=== PATIENT | female | born 1950 | race Caucasian/White ===

== ENCOUNTER 2019-04-09 23:41 | Inpatient (IN) | payer OTHER, MEDICAID ==
[~2019-04-09] VITALS: Ht 152.4 cm; Wt 63.5 kg
[2019-04-09 23:54] VITALS: Ht 152.4 cm; Wt 63.5 kg
[2019-04-10 00:24] LABS: BASOPHIL % 0.3 % (0-2); PLATELET COUNT 141 x10^3mcL (130-400)
--- NOTE | 2019-04-10 00:24 | NUR ---
PT BIB [facility] FROM [facility], WITH REPORTS OF TACHYCARDIA AND THE FACILITY REPORTED THAT "THEY WERE UNABLE TO GIVE PT HER IV MEDS IT IS OUT OF THIER SCOPE OF PRACTICE." PER MEDIC PT WAS TRANSFERRED FROM [place] TO [facility] AND WAS ONLY AT [facility] FOR 30 MINUTES BEFORE THE FACILITY CALLED 911. PER MEDIC PT C/O "HEARTBURN LIKE ACID REFLUX TO THROAT." PT DENIES ANY PAIN. PT C/O OF NAUSEA AT THIS TIME. PT UNABLE TO URINATE DUE TO GENERALIZED WEAKNESS AT THIS TIME. PER DAUGHTER AT THE BEDSIDE PT HAD "STOMACH CANCER" IN 2013 AND RECEIVES TPN. PT HAS URINARY MCCORD TO GRAVITY WITH STRAW CLOUDY COLORED URINE NOTED AT THIS TIME. PT IS AAOX4, NO DISTRESS NOTED, RESP E/U, JAUNDICE NOTED TO SKIN, AREAS OF PURLE YELLOWISH SKIN NOTED TO BILATERAL UPPER EXTREMITIES, PT HAS PICC, 2 VALVE, TO LUE, VERTICAL SCAR NOTED TO LOEFT LATERAL ABDOMEN, ABDOOMEN IS DISTENDED AND SOFT. PT HAS HISTORY OF LIVER CIRRHOSIS FROM PAST ALCOHOLISM. PT PLACED NO FULL CM, NSR, VSS, BED IN LOWEST POSITION, SIDE RAIL X2 UP FOR SAFETY, DAUGHTER AT THE BEDSIDE. MSE COMPLETED BY DR ALMEIDA. WILL CONT TO MONITOR. PT IS [place] SPEAKING ONLY.
[2019-04-10 00:29] LABS: RED CELL DISTRIBUTION WIDTH 19.5 % (11.5-14.5)
[2019-04-10 00:37] LABS: CALCIUM 8.5 mg/dL (8.5-10.1); CARBON DIOXIDE 28.8 mmol/L (21-32); CHLORIDE SERUM 106 mmol/L (98-107); CREATININE SERUM 0.9 mg/dL (0.6-1.0); GFR1 > 60 mL/min; GLUCOSE SERUM 70 mg/dL (74-106); POTASSIUM SERUM 4.4 mmol/L (3.5-5.1); SODIUM SERUM 139 mmol/L (136-145)
[2019-04-10 00:41] LABS: ALKALINE PHOSPHATASE 497 U/L (46-116); ALT/SGPT 19 U/L (14-59); AMYLASE 33 U/L (25-115); AST/SGOT 79 U/L (15-37); BILIRUBIN TOTAL 0.9 mg/dL (0.20-1.00); LIPASE 105 IU/L (73-393); MAGNESIUM 2.1 mg/dL (1.8-2.4)
[2019-04-10 00:45] LABS: ALBUMIN 1.8 g/dL (3.4-5.0)
--- NOTE | 2019-04-10 01:20 | NUR ---
PT MEDICATED PER ORDER. PT VERBALIZED UNDERSTANDING OF MEDICATION TEACHING. SEE EMAR FOR DETAILS.
--- NOTE | 2019-04-10 01:45 | NUR ---
FAMILY AT BEDSIDE STATES "IM HER PRIMARY CAREGIVER IF ANYTHING CHANGES CAN I GIVE YOU MY NUMBER". PT FAMILY MEMBER NAME ARLEN CHANG AND NUMBER [phone]. PRIMARY RN MADE AWARE.
--- NOTE | 2019-04-10 02:45 | NUR ---
MEDICATED PT WITH D5 IN NS PER MD ORDERS, INFUSING NO PROB, NO INFILTRATION OR PAIN NOTED TO THE DENIZ SITE. PT IS RESTING WITH EYES CLOSED, AROUSABLE TO VOICE. PT DENIES ANY PAIN AT THIS TIME. PT IS AAOX4, NO DISTRESS NOTED, RESP E/U. [PT ON FULL CM, SINUS TACH, MD AWARE. BED IN LOWEST POSITION, SIDERAIL X2 UP FOR SAFETY, CALL ALLISON WITHIN REACH. WILL CONT TO MONITOR.
--- NOTE | 2019-04-10 03:30 | NUR ---
PRESSURE ULCER NOTED TO SACRUM, PICTURES TAKEN OF WOUND, EMPTIED 400ML OF STRAW COLORED CLOUDY URINE FROM MCCORD, PT IS AAOX4, NO DISTRESS NOTED, RESP E/U, PT ON FULL CM, SINUS TACH, AWARE. PT DENIES ANY PAIN AT THIS TIME. D5 WITH NS INFUSING, NO INFILTRATION NOTED TO IV PICC LINE OR PAIN REPORTED. WILL CONT TO MONITOR.
[2019-04-10 03:31] LABS: T3 TOTAL 0.58 ng/mL
[2019-04-10 03:32] LABS: FREE T4 1.35 ng/dL (0.76-1.46); FREE THYROXINE INDEX 2.4 ug/dL (1.4-4.5); T4(THYROXINE) 6.1 ug/dL (4.7-13.3)
--- NOTE | 2019-04-10 03:54 | NUR ---
GAVE REPORT JENNIFER TONG, WHO WILL RESUME FURTHER CARE OF THIS PATIENT.
[2019-04-10] MEDS ORDERED: LANTUS SOLOS100 U/M1 SQ (03:59)
[2019-04-10] MEDS ORDERED: LORAZEPAM1 MG PO (03:59)
[2019-04-10] MEDS ORDERED: MIRTAZAPINE30 M2 PO (03:59)
[2019-04-10] MEDS ORDERED: PEPCID20 MG PO (03:59)
[2019-04-10] MEDS ORDERED: ZOFRAN ODT4 MG SL (04:00)
[2019-04-10] MEDS ORDERED: TOPROL XL25 MG PO (04:00)
--- NOTE | 2019-04-10 04:00 | NUR ---
PT RECEIVED FROM THE ED VIA JANENE, ACCOMPANIED BY RN AND TRANSPORTER. PT IS ALERT AND ORIENTED X4, BULGARIAN SPEAKING ONLY. CALM AND COOPERATIVE WITH CARE. PT HAS A LUE PICC LINE IN PLACE AND IS INFUSING D5 NS AT 150ML/HR AT THIS TIME. PT HAS GENERALIZED WEAKNESS BUT IS ABLE TO AMBULATE WITH ASSISTANCE,. PT DENIES FALLS IN THE PAST THREE MONTHS. PT IS ON TELE #24 AND IS NSR AND DENIES CHEST PAIN OR DISCOMFORT AT THIS TIME. BILATERAL RADIAL PULSES ARE PRESENT AND MODERATE, LIAT PEDAL PULSES ARE WEAK, NO EDEMA NOTED, SKIN ASSESSMENT IS ULCER NOTED ON THE SACRAL/BUTTOCK, OPTIFOAM IN PLACE. (SEE SKIN ASSESSMENT) LUNG SOUNDS ARE CTAB, BREATHING IS EQUAL AND UNLABORED AT THIS TIME. PT IS ON 2L OF O2 VIA NC, BOWEL SOUNDS PRESENT AND ACTIVE IN ALL 4 QUADRANTS, LAST BM PER PT REPORT IS 04/10/19. ORIENTED PT TO ROOM, BED CONTROLS, CALL LIGHT SYSTEM, SIDE RAILS UP X2, BED IN LOWEST POSITION.
[2019-04-10 04:51] VITALS: BP 123/67
--- NOTE | 2019-04-10 05:15 | NUR ---
PT HAS BEEN ALERT AND ORIENTED X4, CALM AND COOPERATIVE WITH CARE. PT DENIES PAIN AT THIS TIME. IV INFUSING AND INTACT AT THIS TIME. PT HAS LUE PICC LINE IN PLACE. MCCORD CATHETER IS IN PLACE AND DRAINING FREELY AT THIS TIME. SAFETY AND COMFORT MEASURES MAINTAINED, BED IN LOWEST POSITION, CALL LIGHT WITHIN REACH. WILL ENDORSE CONTINUITY OF CARE TO THE ONCOMING RN.
--- NOTE | 2019-04-10 07:00 | NUR ---
RECEIVED BEDSIDE REPORT FROM MOLD INJECTOR NURSE AT THIS TIME. PATIENT RESTING COMFORTABLY IN BED. NO APPARENT DISTRESS OR DISCOMFORT NOTED. 2L NC IN PLACE AND TOLERATING WELL. BREATHING EVEN AND UNLABORED. NO RESPIRATORY DISTRESS NOTED. NO INDICATION OF CHEST PAIN/PRESSURE AT THIS TIME. PATIENT HAS DOUBLE LUMEN PICC LINE TO LUE DRESSING INTACT. MCCROD CATHETER IN PLACE DRAINING TO GRAVITY YELLOW URINE. ALL QUESTIONS AND CONCERNS ADDRESSED. ALL NEEDS ATTENDED TO. WILL CONTINUE TO MONITOR
[2019-04-10 08:52] LABS: microscopic required? YES; urine erythrocyte TRACE (NEGATIVE)
[2019-04-10 08:59] VITALS: BP 123/67
[2019-04-10 09:12] VITALS: BP 109/60
--- NOTE | 2019-04-10 12:00 | NUR ---
PATIENT BLOOD SUGAR 66 AT THIS TIME. NO INSULIN COVERAGE REQUIRED. WAITING FOR TPN TO BE VERIFIED AT THIS TIME. ALL NEEDS ATTENDED TO. WILL CONTINUE TO MONITOR
[2019-04-10 12:19] LABS: CALCIUM 7.6 mg/dL (8.5-10.1); CARBON DIOXIDE 24.2 mmol/L (21-32); CHLORIDE SERUM 111 mmol/L (98-107); CREATININE SERUM 0.8 mg/dL (0.6-1.0); GFR1 > 60 mL/min; GLUCOSE SERUM 109 mg/dL (74-106); POTASSIUM SERUM 4.2 mmol/L (3.5-5.1); SODIUM SERUM 141 mmol/L (136-145)
--- NOTE | 2019-04-10 12:22 | NUR ---
MORNING MEDICATIONS ADMINISTERED AT THIS TIME. PATIENT TOLERATED WELL. NO ADVERSE EFFECTS NOTED. ALL NEEDS ATTENDED TO. WILL CONTINUE TO MONITOR.
--- NOTE | 2019-04-10 12:40 | NUR ---
Initial Nutrition Assessment/Nutritional Consult Dx: Generalized weakness, dehydration PMHx: DM, HTN, Anemia, ETOH cirrhosis w/portal HTN, Gastric adenocarcinoma, CKD PSHx: Cholecystectomy, Sub-total gastrectomy w/ Mable-en-Y procedure (December 2013) Labs: (04/10) Na 139, K 4.4, BG 70L, BUN 45H, Cr 0.9, H/H 10.9L/32L, AST 79H, ALT 19 Meds: Colace, D50%, Humulin, [place], Protonix, NSIV, Tylenol, Zithromax, Zofran, Zosyn Diet: NPO PO Intake: None documented, as pt. admitted today 04/10/19 Ht: 60" (152 cm) Wt: 140# (63.5 kg) BMI: 27.3 (Overweight) IBW: 100# %IBW: 140% AJBW: 110# UBW: 130-140# Age: 68 y/o female Food Allergies: NKFA Skin: Intact Rufino: 16 Edema: None GI: Last BM x 1 (04/10) Per H&P, pt. admitted from [facility] with elevated HR, heartburn, and per pt., needs for TPN due to facility not having TPN. ST evaluation for pt. is pending at this time. CT scan of abdominal/pelvic region conducted on 04/10/19 with findings of cirrhosis, portal HTN with large amount of intra-abdominal ascites, and no bowel obstruction per provider notes. Pt. endorses no GI distress during visit and reports no history of weight loss. No nutrition support regimen/PO diet order in place at this time. Consult: Malnutrition, Trigger: Poor PO intake >3 days Problem with: No c/o N/V/D/C Problems with: Chewing: N Swallowing: N Current appetite: Poor Recent wt change: None %wt change: N/A Vitamin/Supplement use: None Special diet at home: Nutrition support via PPN per provider notes. Physical activity: None d/t chronic medical condition Education: Pt. diet education not appropriate at this time, as pt. is NPO and relies on nutrition support through PPN at this time. No pt. education handouts were provided during visit. Estimated Nutritional Needs Based on adjusted body weight 50 kg: Energy: 9696-7929 kcal/d (25-30 kcal/kg- older adult maintenance) Protein: 60-75 g/d (1.2-1.5 g/kg)-hepatic dysfunction, preservation of lean body mass Fluid: 0406-1846 ml/d (1 ml/kcal-fluid balance) or per doctor Nutrition Diagnosis 1. Inadequate parental nutrition infusion r/t lack of availability of PN at pt. home facility AEB pt. admitted to acute care facility for nutrition support. 2. Altered nutrition related laboratory values r/t hepatic dysfunction and history of ETOH cirrhosis AEB elevated AST 79 and AlkP 497 values. Intervention/RD recommendation 1. If requiring PPN during hospitalization, initiate D10% AA 4.25% at goal rate 80 mL/Hr to provide 192 g (652 kcal) dextrose and 81.6 g (326 kcal) protein to provide a total of 979 kcals. Meets 75% lower end of estimated kcal and >100% upper ends of estimated protein needs. Lipids not recommended at this time due to elevated liver enzyme values. Regimen provides GIR: 2.74 (Goal <4 mg/kg/min) 2. If pt. assessed by ST for swallowing evaluation, texture and liquid thickness modification per ST/provider. If pt. will be on PO diet, add therapeutic diet CCHO for effective BG/DM management. Monitor/Evaluate Goal: TPN intake at least 75% of estimated needs Monitor: TPN intake/tolerance, Labs, GI function, Labs, skin F/U in 2-3 days as high risk (04/12-04/13)
--- NOTE | 2019-04-10 12:44 | NUR ---
Intervention/RD recommendation 1. If requiring PPN during hospitalization, initiate D10% AA 4.25% at goal rate 80 mL/Hr to provide 192 g (652 kcal) dextrose and 81.6 g (326 kcal) protein to provide a total of 979 kcals. Meets 75% lower end of estimated kcal and >100% upper ends of estimated protein needs. Lipids not recommended at this time due to elevated liver enzyme values. Regimen provides GIR: 2.74 (Goal <4 mg/kg/min) 2. If pt. assessed by ST for swallowing evaluation, texture and liquid thickness modification per ST/provider. If pt. will be on PO diet, add therapeutic diet CCHO for effective BG/DM management.
--- NOTE | 2019-04-10 14:00 | NUR ---
SPOKE TO DR MITCHELL REGARDING ORDER FOR DILAUDID AND ATIVAN @[id number]. [address] MITCHELL MEDICATION ORDER IS FOR TOMORROW 04/11 AND NOT TODAY AND SHE WILL D/C ORDER. WILL HOLD ON ADMINISTRATION. AWAITING D/C ORDER FOR BOTH MEDICATIONS. ALL NEEDS ATTENDED TO. WILL CONTINUE TO MONITOR
--- NOTE | 2019-04-10 16:34 | NUR ---
PATIENT BLOOD SUGAR 69 AT THIS TIME. NO INSULIN COVERAGE REQUIRED. ALL NEEDS ATTENDED TO. WILL CONTINUE TO MONITOR
[2019-04-10 17:14] VITALS: BP 113/52
--- NOTE | 2019-04-10 18:45 | NUR ---
PATIENT RESTING COMFORTABLY IN BED AT THIS TIME. NO APPARENT DISTRESS OR DISCOMFORT NOTED. 2L NC IN PLACE AND TOLERATING WELL. PICC LINE PATENT AND INTACT. MCCORD CATHETER DRAINING TO GRAVITY YELLOW URINE. ALL QUESTIONS AND CONCERNS ADDRESSED. SAFETY PRECAUTIONS MAINTAINED. ALL NEEDS ATTENDED TO. WILL ENDORSE ALL CARE TO CRESTER NURSE
--- NOTE | 2019-04-10 19:05 | NUR ---
PT RECEIVED FROM THE DAY SHIFT RN. PT IS ALERT AND ORIENTED X3, CALM AND COOPERATIVE WITH CARE. PT HAS NO COMPLAINT OF PAIN AT THIS TIME. PT IS ON 2L OF O2 VIA NC, SAFETY AND COMFORT MEASURES MAINTAINED, BED IN LOWEST POSITION, CALL LIGHT WITHIN REACH.
[2019-04-10 20:40] VITALS: BP 101/54
--- NOTE | 2019-04-11 01:03 | NUR ---
PT IS AWAKE AND ON THE TELEPHONE AT THIS TIME. PT HAS NO COMPLAINT OF PAIN AT THIS TIME. TPN IS INFUSING AT 80ML/HR AND IS INTACT. PT HAS BEEN ALERT AND ORIENTED X4, CALM AND COOPERATIVE WITH CARE. SAFETY AND COMFORT MEASURES MAINTAINED, NO ACUTE DISTRESS NOTED. BED IN LOWEST POSITION, CALL LIGHT WITHIN REACH.
--- NOTE | 2019-04-11 04:13 | NUR ---
PT IS RESTING IN BED WITH EYES CLOSED AT THIS TIME. NO ACUTE DISTRESS NOTED. PT HAS BEEN CALM AND COOPERATIVE WITH CARE, NO S/S OF PAIN NOTED. TPN IS INFUSING AT 80ML/HR AT THIS TIME. SAFETY AND COMFORT MEASURES MAINTAINED, BED IN LOWEST POSITION, CALL LIGHT WITHIN REACH.
--- NOTE | 2019-04-11 05:14 | NUR ---
PT HAS RESTED IN INTERMITTENT INTERVALS THROUGHOUT THE SHIFT. NO ACUTE DISTRESS NOTED. PT HAS BEEN CALM AND COOPERATIVE WITH CARE AT THIS TIME. PT HAS NO COMPLAINT OF PAIN AT THIS TIME. MCCORD IS DRAINING FREELY AT THIS TIME. TPN INFUSING IN THE LUE PICC LINE AT 80 ML/HR. SAFETY AND COMFORT MEASURES MAINTAINED, BED IN LOWEST POSITION, CALL LIGHT WITHIN REACH. WILL ENDORSE CONTINUITY OF CARE TO THE ONCOMING RN.
[2019-04-11 05:50] VITALS: BP 129/51
[2019-04-11 07:17] LABS: BASOPHIL % 0.8 % (0-2)
[2019-04-11 07:21] LABS: PLATELET COUNT 94 x10^3mcL (130-400); RED CELL DISTRIBUTION WIDTH 19.4 % (11.5-14.5)
[2019-04-11 07:34] LABS: CARBON DIOXIDE 22.4 mmol/L (21-32); CREATININE SERUM 1.1 mg/dL (0.6-1.0); MAGNESIUM 2.1 mg/dL (1.8-2.4); PHOSPHOROUS 2.6 mg/dL (2.5-4.9); POTASSIUM SERUM 4.3 mmol/L (3.5-5.1)
--- NOTE | 2019-04-11 07:47 | NUR ---
A+OX4, NO RESPRIATORY DISTRESS NOTED, DENIES PAIN, TELE 24, PULSES MODERATE AND EQUAL LIAT, NO EDEMA NOTED, LUNG SOUNDS CTA, 2L NC, BOWEL SOUNDS ACTIVE, ABD DISTENDED, MCCORD CATH DRAINING YELLOW URINE, GENERALIZED WEAKNESS, L BUTTOCKS OPEN WOUND WITH OPTIFOAM CDI, BUE ECCHYMOSIS, PICC LINE LUE WITH NS @ 100 ML/HR, SITE WNL.
[2019-04-11 09:30] VITALS: BP 131/65
--- NOTE | 2019-04-11 09:44 | NUR ---
PT RESTING IN BED, HAD BLACK BM VIA BED CORDOVA, ABLE TO SWALLOW CRUSHED MEDS, NO RESPRIATORY DISTRESS NOTED, CALL LIGHT WITHIN REACH, TYLENOL PO GIVEN FOR TEMP 100.0.
--- NOTE | 2019-04-11 11:46 | NUR ---
PT HAVING THORACENTESIS AT BEDSIDE.
--- NOTE | 2019-04-11 11:57 | NUR ---
PT HAVING PARACENTESIS AT BEDSIDE.
--- NOTE | 2019-04-11 12:31 | NUR ---
PT HAD PARACENTESIS AT BEDSIDE, 2.5 L OUT, PT RESTING IN BED, NO RESPIRATORY DISTRESS NOTED, VS STABLE, CALL LIGHT WITHIN REACH.
[2019-04-11 13:30] VITALS: BP 119/54
[2019-04-11 13:53] LABS: BILIRUBIN DIRECT 0.35 mg/dL (0.0-0.2); BILIRUBIN TOTAL 0.8 mg/dL (0.20-1.00)
[2019-04-11 13:54] LABS: ALBUMIN 1.4 g/dL (3.4-5.0)
--- NOTE | 2019-04-11 14:50 | NUR ---
DR MITCHELL AT BEDSIDE TO EXPLAIN NEED FOR THORACENTESIS AND EGD TO PT AND DAUGHTER ARLEN. PT AND DAUGHTER AGRREABLE TO THORACENTESIS, EGD, AND RELEASE OF MEDICAL RECORDS FROM [facility]. WITNESSED PT SIGN CONSENT FOR THORACENTESIS, EGD, AND RELEASE OF MEDICAL RECORDS FROM [facility].
[2019-04-11 15:21] LABS: APPEARANCE FLUID CLEAR; COLOR FLUID PALE YELLOW; LYMPHOCYTE FLUID 18 %; RBC FLUID 190 /cumm; SOURCE FLUID ASCITES; WBC FLUID 225 /cumm
[2019-04-11 15:22] LABS: MONOCYTE FLUID 4 %
--- NOTE | 2019-04-11 16:21 | NUR ---
PT WAS SEEN FOR DYSPHAGIA. PT WAS ABLE TO SAFELY SWALLOW PUREE DIET WITH THIN LIQUID WITHOUT S/S OF ASPIRATION.DIFFICULTY WITH MASTICATION SKILLS. RECOMMENDATION PUREE DIET WITH THIN LIQUID AFTER CONSULTAION WITH PHYSICIAN. SMALL BITES AND SIPS ONLY.
--- NOTE | 2019-04-11 16:21 | NUR ---
PER BALTAZAR HARDEN TO GIVE 250 ML BOLUS.
--- NOTE | 2019-04-11 16:37 | NUR ---
PT RESTING IN BED, NO RESPIRATORY DISTRESS NOTED, DENIES PAIN, CALL LIGHT WITHIN REACH.
[2019-04-11 17:30] VITALS: BP 125/59
--- NOTE | 2019-04-11 17:41 | NUR ---
PT BLOOD SUGAR OVER 600. DR MITCHELL NOTIFIED AND AT BEDSIDE. PER DR MITCHELL PT TO BE GIVEN 21 UNITS HUMULIN R INSULIN AND RE CHECK BLOOD SUGAR IN 1 HOUR. NO RESPIRATORY DISTRESS NOTED. PT DENIES PAIN, DENIES DIZZINESS. CALL LIGHT WITHIN REACH.
--- NOTE | 2019-04-11 17:48 | NUR ---
MCCORD CARE DONE.
--- NOTE | 2019-04-11 18:46 | NUR ---
BLOOD SUGAR RECHECKED, STILL OVER 600. BLOOD SUGAR REPEATED, OVER 600. CALLED RESIDENT CALL PHONE 3 TIMES, AND NO ANSWER. PAGED DR GARCIA. LANTUS 10 UNITS GIVEN. PT RESTING IN BED, NO RESPIRATORY DISTRESS NOTED, CALL LIGHT WITHIN REACH.
--- NOTE | 2019-04-11 19:07 | NUR ---
DR GARCIA NOTIFIED THAT PT BLODD SUGAR OVER 600 AFTER RECEIVING 21 UNITS AND THAT 10 UNITS LANTUS GIVEN. PER DR GARCIA, RECHECK BS IN ONE HOUR.
--- NOTE | 2019-04-11 19:44 | NUR ---
ENDORSED CARE TO JOSTIN TONG.
[2019-04-11 20:00] VITALS: BP 143/67
--- NOTE | 2019-04-11 20:00 | NUR ---
PATIENT RECEIVED IN BED SLEEPING EYES CLOSED, AWAKEN WHEN NAME CALLED, ORIENTED X4, SPEECH CLEAR ICELANDIC SPEAKING , EDGARD BELL AT BEDSIDE INTERPRETING. NO RESP. DISTRESS BREATHING EVEN UNLABORED, FOUND ON RA SAT 92-96%,DENIED SOB. DENIED CHEST PAINS, TELE#24 ST-SR ON THE MONITOR. LUE PICC LINE SITE CLEAR DRESSING INTACT, RECEIVING TPN AND NS. ABDOMEN DISTENDED/ASCITES, ACTIVE BS,LOOSE BM, ON LACTULOSE. MCCORD CATH DRAINING YELLOW UA, STAT LOCK INTACT, NO DEPENDENT LOOPS, MCCORD BAG OF THE FLOOR.DENIED PAIN. PATIENT WITH GENERALIZED WEAKNESS.SAFETY/FALL PRECAUTIONS MAINTAINED. WILL CONTINUE TO MONITOR.
--- NOTE | 2019-04-11 21:12 | NUR ---
DR NOLAN INFORMED ABOUT BS RESULT THAT WAS JUST CHECKED WAS >600 AND REPEATED WAS >600. REQUESTED TO MD TO ORDER STAT BMP TO CONFIRM RESULT.
[2019-04-11 21:43] LABS: CALCIUM 7.9 mg/dL (8.5-10.1); CARBON DIOXIDE 24.7 mmol/L (21-32); CREATININE SERUM 1.3 mg/dL (0.6-1.0); POTASSIUM SERUM 4.2 mmol/L (3.5-5.1)
--- NOTE | 2019-04-11 21:50 | NUR ---
DR ESPINAL AND DR ABBOTT AT [facility], INFORMED BOTH MD ABOUT BLOOD SUGAR OF GREATER THAN 600 AND ALSO WITH REPEATED DRAW, MD WILL ORDER STAT ABG AND BMP AND VERBALLY ORDERED TO DC TPN. WILL CARRY ORDER.
--- NOTE | 2019-04-11 22:13 | NUR ---
SCHED MEDS ADMINISTERED ORALLY, CRUSHED MED AND MIX WITH APPLE SAUCE, PLACED IN A SITTING POSITION. PATIENT INFORMED ABOUT EACH MEDS ACTIONS AND PURPOSES PRIOR. TOOK PILLS WELL. COVERED WITH 10 UNITS OF LANTUS AND 21 UNITS OF REG INSULIN PER DR NAIR SAYED.ALSO INFORMED THAT [facility] DRAW STAT GLUCOSE WAS 716.
--- NOTE | 2019-04-11 22:31 | NUR ---
DR BLANCO SAYED HERE, RE INFORMED ABOUT GLUCOSE FROM BMP DRAWN EARLIER WAS 716, MD ORDER TO RE-CHECK BS IN AN HR AND ALSO CHANGED SLIDING SCALE TO AC AND HS INSTEADD OF Q6HRS.
--- NOTE | 2019-04-11 23:35 | NUR ---
DR JOSE AHUJA, CHECK IN CLASS ROOM AND DR NOLAN THERE, INFORMED HIM ABOUT MS EZIO 2330 BLOOD SUGAR CHECK WHICH WAS 517 , HE STATED WILL REPORT TO DR BLANCO SAYED.WILL FOLLOW UP.
[2019-04-12] VITALS (7 sets, daily range): BP systolic 97–114; BP diastolic 45–66
--- NOTE | 2019-04-12 01:00 | NUR ---
PATIENT RESTING COMFORTABLY THIS TIME, AWAKEN WHEN NAME CALLED. OFFERED NO COMPLAINT. COMPLAINT WITH NPO ORDER.DR GARCIA INFORMED ABOUT PROCEDURE TODAY WHICH IS EGD AND THORACENTESIS AND REQUIREMENT FOR PTT AND BHCG WHCI[facility] WASNT ORDERED. STATED WILL PUT ORDER IN. WILL F/U.
--- NOTE | 2019-04-12 03:09 | NUR ---
HEART RATE BEEN RUNNING ON 120'S, PATIENT CHECKED AWAKE, COMPLAINED OF ABDOMINAL PAIN, RATE BETWEEN 7-8/10, MEDICATED WITH NORCO 1 TAB , QK=024/51, MAP=71, XP=[id number]. WILL CHECK EFFECTIVENESS.
--- NOTE | 2019-04-12 03:17 | NUR ---
AFTER GIVING PATIENT A PAIN MEDICATION ORALLY PATIENT VOMITED YELLOW LIQUID ABOUT 200 ML. MEDICATED WITH ZOFRAN FOR N/V. WILL CHECK EFFECTIVENESS.
--- NOTE | 2019-04-12 04:04 | NUR ---
DR GARCIA MADE AWARE ABOUT PATIENT HR BEING ON THE LOW 120'S AND PATIENT BEING ASYMPATOMATIC WITH IT. MD STATED JUST CONTINUE TO MONITOR.
--- NOTE | 2019-04-12 06:20 | NUR ---
PATIENT SLEPT OFF AND ON DURING THE SHIFT, HAD COMPLAINED OF ABDOMINAL PAIN AND WAS MEDICATED WITH MIN RELIEF,VOMITED RIGHT AWAY,MEDICATED WITH ZOFRAN WITH RELIEF. COVERED WITH REG INSULIN THIS AM,. DOUBLE LUMEN PICC LINE TO LUE ALL PORTS WITH BLOOD RETURN. HAD SOME LOOSE STOOL DURING THE SHIFT. RE-DRESSED DRSG TO LT BUTTOCKS.VERBALIZED NEEDS WELL.COMPLIANT WITH NPO ORDER. DR MITCHELL IN THIS AM UPDATED WITH PREVIOUS BLOOD SUGAR, TPN DC'D LAST NIGHT AND LATEST BS AND INSULIN COVERAGE GIVEN, ALSO PROCEDURES TO BE PERFORMED THIS AM. WILL ENDORSE CONTINUITY OF CARE TO INCOMING NURSE.
[2019-04-12 06:47] LABS: BASOPHIL % 0.8 % (0-2)
[2019-04-12 07:08] LABS: CARBON DIOXIDE 23.1 mmol/L (21-32); CREATININE SERUM 1.3 mg/dL (0.6-1.0); MAGNESIUM 1.9 mg/dL (1.8-2.4); PHOSPHOROUS 2.1 mg/dL (2.5-4.9); POTASSIUM SERUM 3.8 mmol/L (3.5-5.1)
[2019-04-12 07:30] LABS: PLATELET COUNT 96 x10^3mcL (130-400); RED CELL DISTRIBUTION WIDTH 18.8 % (11.5-14.5)
--- NOTE | 2019-04-12 07:32 | NUR ---
BEDSIDE HANDS OFF PERFORMED WITH INCOMING NURSE MARGAUX.
--- NOTE | 2019-04-12 07:58 | NUR ---
A+OX4, NO RESPIRATORY DISTRESS NOTED, TELE 24, PULSES MODERATE AND EQUAL LIAT, NO EDEMA NOTED, LUNG SOUNDS CTA, 2L NC, BOWEL SOUNDS ACTIVE, LOOSE STOOL, ABD DISTENDED/ASCITES, MCCORD CATH DRAINING YELLOW URINE, GENERALIZED WEAKNESS, L BUTTOCKS OPEN WOUND WITH OPIFOAM, BUE ECCHYMOSIS, PICC LINE LUE WITH NS @ 100 ML/HR, SITE WNL.
--- NOTE | 2019-04-12 09:55 | NUR ---
THORACENTESIS COMPLETE, 600 ML OUT.
--- NOTE | 2019-04-12 10:00 | NUR ---
WOUND CARE EVALUATION NOTE: REASON FOR EVALUATION: LOW RAGHAVENDRA SCORE AND BUTTOCK WOUNDS SKIN ASSESSMENT DONE WITH THIS 68 Y/O FEMALE PT ADMITTED FROM [facility] TO [facility] WITH INITIAL DX DEHYDRATION. PT. ADMITTED WITH PRESSURE ULCER TO SACRALCOCCYX AND DIABETIC ULCER TO LEFT HEEL. ALL ABOVE INFORMATION OBTAINED FROM ADMISSION H&P AND [facility] INTERFACILITY TRANSFERE INFORMATION. SKIN IS WARM AND DRY, BLE NO HAIR GROWTH, BLE NO EDEMA. DORSAL PEDAL PULSES PRESENT AND NORMAL. CAPILLARY REFILLED < 2 SEC. X 10 TOES. PT. ABLE TO TURN AND REPOSITION AND FOLLOW SIMPLE DIRECTIONS. PLAN OF CARE DISCUSSED WITH PRIMARY RN AND PT. PHONE CALL PLACE TO DAUGHTER ARLEN [phone], NO CONNECTION. INTEGUMENTARY: -MULTIPLE ECCHYMOSIS TO UPPER EXTREMITIES -RIGHT FOREHEAD [id number] WITH 0.5CM HIGH, SKIN INTACT -INCOTINENT ASSOCIATE DERMATITIS (IAD) TO: B/L GROINS EXTENDED TO PERINEUM, SKIN INTACT WITH REDNESS -SACRALCOCCYX PRESSURE ULCER STAGE 2, 2X0.5X0.1CM WOUND BED IS CLEAN WITH 100% GRANULATING TISSUE, MOIST, NO ODOR, And NIMA-WOUND SKIN INTACT -LEFT HEEL DIABETIC ULCER UNSTAGEABLE WITH 4X3CM STABLE BLACK ESCHAR, NIMA WOUND SKIN INTACT -BLANCHABLE REDNESS TO RIGHT HEEL RECOMMENDATIONS: -CONTINUE TO MONITOE RIGHT FOREHEAD HEMATOMA, REPORT TO PCP FOR KOREY -APPLY HYDRAGUARD TO UPPER EXTREMITIES BID AND COMPOUND FILLER -LEFT HEEL DIABETIC ULCER APPLY WITH SOAKED 4X4 BETADINE SOLUTION AND WRAP WITH KERLIX ROLLS SECURE WITH TAPE QD AND PRN IF SOILING -CLEANSE SACRALCOCCYX WITH NS. PAT DRY, APPLY Z-GUARD AND COVER WITH FOAM DRESSING QD AND PRN IF SOILING PREVENTION -OFFLOAD BILATERAL HEELS BY PLACING PILLOWS UNDER CALVES UNLESS OTHERWISE CONTRAINDICATED -PRESSURE REDISTRIBUTION SURFACE THERAPY -TURN AND REPOSITION Q2H, OFFLOAD SACRALCOCCYX AND BUTTOCKS BY TURNING RIGHT AND LEFT -CONTINUE TO FOLLOW RD RECOMMENDATIONS ALL ABOVE RECOMMENDATIONS DISCUSSED WITH PRIMARY RN. WILL FOLLOW UP PT Q7-10 DAYS. PLEASE CONTACT WOUND CARE NURSE FOR ANY QUESTION AND CHANGE OF WOUND CONDITION.
--- NOTE | 2019-04-12 10:11 | NUR ---
PT OFF UNIT FOR EGD. ENDORSED VITAL SIGNS POST THORACENTESIS TO OR NURSES.
--- NOTE | 2019-04-12 12:42 | NUR ---
PT BACK ON UNIT FROM EGD, VS STABLE, NO RESPIRATORY DISTRESS NOTED, DENIES PAIN, CALL LIGHT WITHIN REACH.
--- NOTE | 2019-04-12 14:56 | NUR ---
1. Recommend continuing puree diet. 2. Recommend healthy diabetic snacks in between meals.
--- NOTE | 2019-04-12 14:56 | NUR ---
Follow-up Nutrition Assessment: 221T/A NING HOLGUIN FU HR Dx: generalized weakness, dehydration PMHx: DM, HTN, Anemia, ETOH cirrhosis w/portal HTN, gastric adenocarcinoma, CKD Labs: (04/12) BG 201H, BUN 32H, CREAT 1.3H, LDH 234H, (04/11) AST 51H, AlkP 334H Meds: Albuminar, D50%, humulin, lantus, Lasix, reglan, Zofran, zosyn Diet: Full liquid diet PO Intake: (04/11) lunch 100% Weights: (04/10) 63.5 kg, (04/12) Skin: L buttock open wound Rufino: 16 I/Os: (04/12) 3000/4800 (-1800) Edema: none GI: Last BM: 04/11 RDN Visit (04/12): Patient was not in the room. Spoke with Dr. Morales, she said that patient's diet has been progressed to puree diet. FNS received consult for intolerance to PO feedings, S/P gastric resection for cancer, needs multiple small meals/snacks. Per progress note (04/12), TPN was discontinued, pt passed swallow eval, puree diet will be started today after EGD, EGD today with Dr. Turner. Estimated Nutritional Needs based on adjusted body weight 50 kg Energy: 7492-9099 kcal/d (25-30 kcal/kg)- geriatric maintenance Protein: 60-75 g/d (1.2-1.5 g/kg)- hepatic dysfunction, s/p gastric resection Fluid: 3665-6567 (1ml/kcal) or per MD Nutrition Diagnosis 1. Inadequate parenteral nutrition infusion related to lack of availability of PN at home facility as evidenced by admitted to acute care facility for nutrition support. (resolved) 2. Altered nutrition related lab values related to hepatic dysfunction and history of ETOH cirrhosis as evidenced by elevated AST 51, AlkP 334. (trending down- ongoing) Intervention 1. Recommend continuing puree diet. 2. Recommend healthy diabetic snacks in between meals. Monitor/Evaluate Goal: Have pt meet at least 75% of estimated needs Monitor: PO intake, Labs, GI function F/U in 2-3 days as high risk 04/14-
--- NOTE | 2019-04-12 15:10 | NUR ---
PT RESTING IN BED, NO RESPIRATORY DISTRESS NOTED, IN NO APPARANT PAIN, CALL LIGHT WITHIN REACH.
--- NOTE | 2019-04-12 16:33 | NUR ---
PHYSICAL THERAPY NOTE ATTEMPTED FOR SCHEDULED PHYSICAL THERAPY SESSION, PATIENT WAS LETHARGIC AND SLEEPING, ARLEN TONG AWARE ; HOLD ON PHYSICAL THERAPY SESSION. TO BE SEEN TOMORROW FOR FOLLOW UP SESSION
--- NOTE | 2019-04-12 16:42 | NUR ---
WOUND CARE DONE TO DIABETIC ULCER TO L HEEL, COVERED IN BETADINE SOAKED 4X4 AND WRAPPED IN KERLIX. LIAT HEEL PROTECTORS PLACED ON PT. NO RESPRIATORY DISTRESS NOTED, DENIES PAIN, CALL LIGHT WITHIN REACH.
--- NOTE | 2019-04-12 17:50 | NUR ---
PT RESTING IN BED, NO RESPIRATORY DISTRESS NOTED, DENIES PAIN, MCCORD CARE DONE, CALL LIGHT WITHIN REACH. DAUGHTER ARLEN CALLED BUT PT STATED SHE DID NOT WANT TO SPEAK WITH HER AT THIS TIME.
--- NOTE | 2019-04-12 19:15 | NUR ---
RECEIVED REPORT FROM ARLEN TONG. ASSUMING ALL CARE
--- NOTE | 2019-04-12 19:30 | NUR ---
RECEIVED PT LAYING IN BED. PT IS A/OX4. SPEECH IS CLEAR. ABLE TO MAKE NEEDS KNOWN. DENIES SANTILLAN. GCS=15. ENT FREE OF DISCHARGE. ORAL [place] PINK AND MOIST. TRACHEA MIDLINE. BREATHING IS E/U ON 2 L NC. LUNGS SOUND CLEAR TO BUL AND DIMIN TO BLL. SYMMETRICAL CHEST EXPANSION NOTED. PT ON TELE # 22 READING NSR. S1/S2 HEART SOUNDS AUSCULTATED. CHEST WALL EQUAL AND SYMMETRICAL. DENIES ANY CP. PALAPBLE PULSES X4 EXTREMITIES. SKIN IS WARM AND DRY. NO EDMEA NOTED. LUE PICC LINE IN PLACE, SALINE LOCKED. CAP REFILL < 3 SECS. GENERALIZED WEAKNESS. NO JOINT SWELLING/DEFORMITY NOTED. PT IS ON CCHO PUREE DIET. DENIES ANY N/V. ABD IS DISTENDED, NONTENDER TO PALPATION. BOWEL SOUNDS ACTIVE X4 QUADRANTS. NO BM NOTED. MCCORD IS INTACT/SECURED, DRAINING VIA GRAVITY WITH FRIDA COLORED URINE. L BUTTOCKS OPEN WOUND WITH OPTIFOAM IN PLACE, DRESSING CDI. ECCHMOSIS NOTED TO BUE. ULCERS NOTED TO L HEEL WITH DRESSING CDI, FLEX BOOTS IN PLACE. PT IS CALM AND COOPERATIVE. FAMILY AT BEDSIDE. BED IN LOW POSITION. CALL LIGHT IN REACH. WILL CONT TO MONITOR
--- NOTE | 2019-04-12 19:38 | NUR ---
ENDORSED CARE TO YEHUDA TONG.
--- NOTE | 2019-04-12 21:55 | NUR ---
PT IS AWAKE/ALERT. BREATHING IS E/U ON 2 L NC. DENIES ANY PAIN AT THIS TIME. FAMILY AT BEDSIDE. BED IN LOW POSITION. CALL LIGHT IN REACH. WILL CONT TO MONITOR.
--- NOTE | 2019-04-13 01:15 | NUR ---
PT IS SLEEPING, EASILY AROUSABLE. NO S/S OF ACUTE DISTRESS NOTED. RISE AND FALL OF CHEST SYMMETRIC. CALL LIGHT WITHIN REACH. BED IN LOW POSITION. WILL CONT TO MONITOR
--- NOTE | 2019-04-13 04:30 | NUR ---
PT IS SLEEPING, EASILY AROUSABLE. BREATHING IS E/U ON 2 L NC. RISE AND FALL OF CHEST SYMMETRIC. NO S/S OF ACUTE DISTRESS NOTED. BED IN LOW POSITION. CALL LIGHT IN REACH. WILL CONT TO MONITOR.
[2019-04-13 05:59] VITALS: BP 114/50
--- NOTE | 2019-04-13 07:10 | NUR ---
REPORT GIVEN TO HELENA TONG. ALL QUESTIONS/CONCERNS ADDRESSED AT THIS TIME. ENDORSING ALL CARE
[2019-04-13 07:22] LABS: BASOPHIL % 0.7 % (0-2)
[2019-04-13 07:28] LABS: PLATELET COUNT 78 x10^3mcL (130-400); RED CELL DISTRIBUTION WIDTH 18.9 % (11.5-14.5)
[2019-04-13 07:33] LABS: CARBON DIOXIDE 20.6 mmol/L (21-32); CREATININE SERUM 1.5 mg/dL (0.6-1.0); MAGNESIUM 1.8 mg/dL (1.8-2.4); PHOSPHOROUS 2.7 mg/dL (2.5-4.9); POTASSIUM SERUM 3.7 mmol/L (3.5-5.1)
--- NOTE | 2019-04-13 08:00 | NUR ---
RECEIVED PATIENT WITH DIMINISHED BREATH SOUND AND GENERAL WEAKNESS AND IS PLEASANT AND DENIES PAIN AT THIS TIME. STATES SHE IS NOT HUNGERY WHEN OFFERED DIET AND REFUSED THE LACTULOSE SHE INDICATED TOO MUCH STOOL OUTPUT. PATIENT HAS WOUNDS TO THE BUTTOCK AND A LEFT HEEL ULCER. PATIENT HAS SOME TRACE EDEMA TO THE LOWER EXTREMITIES. PATIENT HAS DISTENDED AND MODERATE FIRM ABDOMEN AND BOWEL SOUNDS ARE HYPOACTIVE AT THIS TIME. PATIENT HAS HX OF THORACENTESIS TIMES TWO WITH 600ML AND THEN 2500ML. PATIENT HAD A EGD WELL AND WAS FOUND WITH PROTAL HTN, HIATAL HERNIA, AND EARLY ESOPHAGEAL VARIX, AND A LARGE ANASTOMTIC ULCER. SHE HAS A PICC LINE IN PLACE TO THE LEFT UPPER ARM AND INTACT AND FLUSHED EASILY. PATEINT HAS BEEN WITH NOTED LARGE PLURAL EFFUSION ON ADMIT AND HAD IMPROVED WITH THE THORACENTESIS AND DENIES ANY ACUTE RESPIRATORY DISTRESS AT THIS TIME. 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 SHE HAS A HISTORY OS ALCOHOLISM NOTED. SHE HAS DIABETES WELL AND THE SUGARS VARY AND AT THIS TIME AT 132. SHE CAME FROM [facility] AND WAS THERE FOR REHAB AND POSSIBLE TPN INFUSION FOR HER FAILURE TO THRIVE. VITALS AT THIS TIME AT 98.4, 75, 18, 101/43, 99% ON 02 AT 2 LITERS.
[2019-04-13 09:00] VITALS: BP 101/43
[2019-04-13 09:43] VITALS: BP 101/43
--- NOTE | 2019-04-13 10:00 | NUR ---
MINIMAL INTAKE FOR BREAKFAST NOTED. SHE STATES HS IS NOT HUNGERY.
[2019-04-13] MEDS ORDERED: ZITHROMAX TRI-500 MG PO (12:12)
[2019-04-13] MEDS ORDERED: REG10 PO (12:13)
[2019-04-13] MEDS ORDERED: CARL PO (12:21)
[2019-04-13] MEDS ORDERED: HUMULIN R100 U/1 M1 SC (12:22)
[2019-04-13] MEDS ORDERED: XIFAXAN550 M1 PO (12:23)
[2019-04-13 12:49] VITALS: BP 101/43
[2019-04-13 13:22] VITALS: BP 117/55
--- NOTE | 2019-04-13 13:46 | NUR ---
PATIENT IS FOR DISCHARGE AND AWAITIGN ARRAQEMENTS AT THIS TIME. PATIENT IS SITTING UP AND EATTING HER LUNCH. NO ACUTE DISTRESS AT THIS TIME. ZITHROMAX IS RUNNING AT THIS TIME.
--- NOTE | 2019-04-13 16:16 | NUR ---
PATIENT FOR DISCHARGE AND FOR ELECTRICIAN THIRD AT 600PM. PATIENT HAD THE PIC LINE REMOVED BY THE RESIDENT AND HAD BEEN RESTING QUIETLY BUT STILL WITH POOR INTAKE. PATIENT DENIES PAIN AT THIS TIME. SHE HAS REFUSED THE LACTULOSE THIS AM. WILL BE TAKING PICTURES OF THE PATEINT INDICATED.
[2019-04-13 17:20] VITALS: BP 115/47
== END 2019-04-13 18:38 | disposition home or self-care (01) | DRG 377 ==
LOC: ED 23:41 → DU 04-10 02:47
PROVIDERS: Emergency Medicine; General Practice; Internal Medicine Gastroenterology; ADMIT Internal Medicine
PROC: 0W9G3ZZ Drainage of Peritoneal Cavity, Percutaneous Approach (ICD-10-PCS; 2019-04-11)
PROC: 0W993ZZ Drainage of Right Pleural Cavity, Percutaneous Approach (ICD-10-PCS; 2019-04-11)
PROC: 0DJ08ZZ Inspection of Upper Intestinal Tract, Via Natural or Artificial Opening Endoscopic (ICD-10-PCS; principal; 2019-04-12 09:30)
DX: K28.4 Chronic or unspecified gastrojejunal ulcer with hemorrhage (principal); J96.01 Acute respiratory failure with hypoxia; E43 Unspecified severe protein-calorie malnutrition; N17.0 Acute kidney failure with tubular necrosis; K76.6 Portal hypertension; J91.8 Pleural effusion in other conditions classified elsewhere; K70.31 Alcoholic cirrhosis of liver with ascites; E11.22 Type 2 diabetes mellitus with diabetic chronic kidney disease; E86.0 Dehydration; R62.7 Adult failure to thrive; D64.9 Anemia, unspecified; D69.59 Other secondary thrombocytopenia; L89.152 Pressure ulcer of sacral region, stage 2; N18.9 Chronic kidney disease, unspecified; I12.9 Hypertensive chronic kidney disease with stage 1 through stage 4 chronic kidney disease, or unspecified chronic kidney disease; Z79.4 Long term (current) use of insulin; Z68.27 Body mass index [BMI] 27.0-27.9, adult; Z85.028 Personal history of other malignant neoplasm of stomach
CPT/HCPCS: 32555; 36600; 43235; 49083; 82962; 83880; 84439; 87116; 87206; 92526-GN; 92610; 94150; 97116-GP; 97530-GP; C1729; C9113; G0378; J0456; J1200; J1610; J1940; J2250; J2310; J2405; J2543; J2765; J3010; J3490; J7030; J7042; J7050; J7131; J7620; J8597; P9047; Q0092